=== PATIENT | female | born 1945 | race Caucasian/White ===

== ENCOUNTER 2018-09-08 22:26 | Emergency (ER) | payer MEDICARE, OTHER ==
[~2018-09-08] VITALS: Ht 167.6 cm; Wt 64.4 kg
[2018-09-09 00:24] VITALS: BP 152/92
== END 2018-09-09 01:22 | disposition home or self-care (01) ==
LOC: ED 23:59
DX: R21 Rash and other nonspecific skin eruption (principal); T50.995A Adverse effect of other drugs, medicaments and biological substances, initial encounter; E03.9 Hypothyroidism, unspecified; Y92.9 Unspecified place or not applicable
CPT/HCPCS: 99283; J7512